=== PATIENT | female | born 1960 | race Caucasian/White ===

== ENCOUNTER 2021-08-03 15:20 | Emergency (ER) | payer OTHER ==
[~2021-08-03 15:20] MED LIST: ANTIVERT 25MG T25 MG PO; PREDNISONE20 MG PO; ROBITUSSIN AC480 ML PO; VIBRAMYCIN100 MG PO
[2021-08-03] MEDS ORDERED: CLINDAMYCIN HC300 MG PO (16:17)
[2021-08-03] MEDS ORDERED: BACTROBAN OINT22 GM EXT (16:17)
== END 2021-08-03 16:31 | disposition home or self-care (01) ==
LOC: ER1 15:20
DX: S51.821A Laceration with foreign body of right forearm, initial encounter (principal); Z23 Encounter for immunization; I10 Essential (primary) hypertension; Z95.1 Presence of aortocoronary bypass graft; Z90.710 Acquired absence of both cervix and uterus; W45.8XXA Other foreign body or object entering through skin, initial encounter
CPT/HCPCS: 90715; 99283

== ENCOUNTER 2022-02-26 10:54 | Emergency (ER) | payer OTHER ==
[~2022-02-26 10:54] MED LIST changes: +BACTROBAN OINT22 GM EXT; +CLINDAMYCIN HC300 MG PO
[2022-02-26 12:33] LABS: HEMOGLOBIN 11.2 gm/dl (12.3-15.3); RED BLOOD COUNT 3.91 M/UL (4.00-5.10); WHITE BLOOD COUNT 11.5 K/UL (4.5-11.0)
== END 2022-02-26 19:00 | disposition home or self-care (01) ==
LOC: ER1 10:54
PROVIDERS: Emergency Medicine
DX: R04.0 Epistaxis (principal); I10 Essential (primary) hypertension; J45.909 Unspecified asthma, uncomplicated; I25.10 Atherosclerotic heart disease of native coronary artery without angina pectoris; Z86.73 Personal history of transient ischemic attack (TIA), and cerebral infarction without residual deficits; Z95.1 Presence of aortocoronary bypass graft
CPT/HCPCS: 70450; 80053; 82550; 82553; 84484; 85025; 85610; 85730; 96374; 96376; 99284; J0360

== ENCOUNTER 2022-05-17 02:43 | Inpatient (IN) | payer OTHER ==
[~2022-05-17] VITALS: Ht 165.1 cm; Wt 82.6 kg
[2022-05-17 03:30] LABS: HEMOGLOBIN 11.8 gm/dl (12.3-15.3); RED BLOOD COUNT 4.2 M/UL (4.00-5.10); WHITE BLOOD COUNT 29.3 K/UL (4.5-11.0)
[2022-05-17] MEDS ORDERED: RANOLAZINE ER1000 MG PO (11:02)
[2022-05-17] MEDS ORDERED: ATORVASTATIN CA40 MG PO (11:03)
[2022-05-17] MEDS ORDERED: HYDRALAZINE HCL50 MG PO (11:03)
[2022-05-17] MEDS ORDERED: CLOPIDOGREL75 MG PO (11:04)
[2022-05-17] MEDS ORDERED: GABAPENTIN100 MG PO (11:04)
[2022-05-17] MEDS ORDERED: LORATADINE10 MG PO (11:05)
[2022-05-17] MEDS ORDERED: COMBIVENT RESPIM4 GM INH (11:05)
[2022-05-17] MEDS ORDERED: ROBAXIN 750 MG750 MG PO (11:05)
[2022-05-17] MEDS ORDERED: PROAIR HFA8.5 GM INH (11:06)
[2022-05-17] MEDS ORDERED: FAMOTIDINE40 MG PO (11:06)
[2022-05-17] MEDS ORDERED: ASPIRIN EC81 MG PO (11:07)
[2022-05-18 07:03] LABS: HEMOGLOBIN 9.2 gm/dl (12.3-15.3); RED BLOOD COUNT 3.26 M/UL (4.00-5.10); WHITE BLOOD COUNT 21.8 K/UL (4.5-11.0)
--- NOTE | 2022-05-18 23:55 | NUR ---
PATIENT COMPLAINING OF ABD PAIN, NOW CHEST PAIN AND HEADACHE. GAVE PATIENT A DOSE OF HER MORPHINE, CONTACTED DR. KITCHEN WHO HAD NO NEW ORDERS AT THIS TIME. WILL CONTINUE TO MONITOR PATIENT. VITALS OBTAINED BY TECH AT 2335 TEMP: 98.8, PULSE: 78, RES: 22, O2: 97%, AND B/P OF 147/52 WITH A MAP OF 78.
[2022-05-19 06:53] LABS: HEMOGLOBIN 9.1 gm/dl (12.3-15.3); RED BLOOD COUNT 3.26 M/UL (4.00-5.10); WHITE BLOOD COUNT 16.2 K/UL (4.5-11.0)
[2022-05-19 06:58] LABS: BUN/CREATININE RATIO 14 (0-10)
[2022-05-19 11:47] LABS: ADENOVIRUS F 40/41 Not Detected (Negative); ASTROVIRUS Not Detected (Negative); CAMPYLOBACTER Not Detected (Negative); CRYPTOSPORIDIUM Not Detected (Negative); E.COLI 0157 Not Detected (Negative); ENTAMOEBA HISTOLYTICA Not Detected (Negative); ENTEROAGGREGATIVE E.COLI (EAEC Not Detected (Negative); ENTEROPATHOGENIC E.COLI (EPEC) Not Detected (Negative); ENTEROTOXIGENIC E.COLI (ETEC) Not Detected (Negative); GIARDIA LAMBLIA Not Detected (Negative); NOROVIRUS GI/GII Not Detected (Negative); PLESIOMONAS SHIGELLOIDES Not Detected (Negative); ROTOVIRUS A Not Detected (Negative); SALMONELLA Not Detected (Negative); SAPOVIRUS Not Detected (Negative); SHIG/ENTEROINVAS.ECOLI (EIEC) Not Detected (Negative); SHIGA-LIK TOX.PRO.E.COLI (STEC Not Detected (Negative); VIBRIO Not Detected (Negative); VIBRIO CHOLERAE Not Detected (Negative); YERSINIA ENTEROCOLITICA Not Detected (Negative)
[2022-05-19 14:14] LABS: CLOSTRIDIUM DIFFICILE TOX A/B Not Detected (Negative)
[2022-05-20 06:02] LABS: HEMOGLOBIN 9.2 gm/dl (12.3-15.3); RED BLOOD COUNT 3.33 M/UL (4.00-5.10); WHITE BLOOD COUNT 15.7 K/UL (4.5-11.0)
[2022-05-20 06:54] LABS: BUN/CREATININE RATIO 15 (0-10)
[2022-05-21 03:39] LABS: HEMOGLOBIN 9.4 gm/dl (12.3-15.3); RED BLOOD COUNT 3.37 M/UL (4.00-5.10); WHITE BLOOD COUNT 14.3 K/UL (4.5-11.0)
--- NOTE | 2022-05-21 04:16 | NUR ---
IV SITE TO THE LEFT AC WAS DISCONTINUED BY MYSELF ON 05/20/22 AT 2357 DUE TO REDNESS AND PREVIOUSLY LEAKING. PATIENT RIGHT ARM RED AT AC AREA AND RIGHT ARM HAND SWOLLEN.
[2022-05-21 04:18] LABS: BUN/CREATININE RATIO 11 (0-10)
--- NOTE | 2022-05-21 08:18 | NUR ---
MILAGROS CR NOTIFED RN DURING SHIFT REPORT PATIENT BLOOD PRESSURE 214/68. 2AM VITALS WERE NOT COMPLETED ON PATIENT, LAST BLOOD PRESSURE NOTED FOR PATIENT WAS AT 2245: 162/49. MD NOTIFIED. ORDERED LABETOL DRIP UNTIL SBP BELOW 160 THEN DISCONTINUE AND START COREQ 25MG BID. PATIENT ALSO COMPLAINED OF LOWER ABDOMEN PAIN OF 10/10, STATED MORPHINE GIVES HER CHEST PAIN. MD GAVE NEW ORDERS FOR DILAUDID 0.2MG Q2HRS/PRN. PATIENT TRANSFERED TO ICU ROOM 2120, REPORT GIVEN TO SELINA.
--- NOTE | 2022-05-21 23:13 | NUR ---
PT BP WAS HIGH AND GAVE PRN HYDRALAZINE AND WHEN I TOLD THE PATIENT I WAS GOING TO BE BACK AND RECHECK HER BP. SHE SAID NO LET HER SLEEP AND DO NOT WAKE HER UP. I EDUCATED ON REASON AND RISK OF NOT RECHECKING BP, PT WAS PERSISTANT TO NOT RECHECK AND LET HER SLEEP
[2022-05-22 06:28] LABS: HEMOGLOBIN 10.2 gm/dl (12.3-15.3); RED BLOOD COUNT 3.63 M/UL (4.00-5.10); WHITE BLOOD COUNT 14.1 K/UL (4.5-11.0)
[2022-05-22 06:56] LABS: BUN/CREATININE RATIO 11 (0-10)
[2022-05-23 06:46] LABS: HEMOGLOBIN 10.5 gm/dl (12.3-15.3); RED BLOOD COUNT 3.79 M/UL (4.00-5.10); WHITE BLOOD COUNT 13.4 K/UL (4.5-11.0)
[2022-05-23 07:10] LABS: BUN/CREATININE RATIO 10 (0-10)
[2022-05-25 07:13] LABS: HEMOGLOBIN 12.2 gm/dl (12.3-15.3); WHITE BLOOD COUNT 15.4 K/UL (4.5-11.0)
[2022-05-25 07:25] LABS: RED BLOOD COUNT 4.41 M/UL (4.00-5.10)
[2022-05-25 07:42] LABS: BUN/CREATININE RATIO 13 (0-10)
[2022-05-25] MEDS ORDERED: AMLODIPINE BESYL5 MG PO (10:20)
[2022-05-25] MEDS ORDERED: AMOX TR-K CLV1 EAC4 PO (10:20)
[2022-05-25] MEDS ORDERED: HYDROCODON-ACE1 EAC2 PO (10:20)
[2022-05-25] MEDS ORDERED: PHENERGAN 25 MG25 M1 PO (10:20)
== END 2022-05-25 13:36 | disposition home or self-care (01) | DRG 872 ==
LOC: ER1 02:43 → MED SURG 4 09:16 → CDU 09:16 → MED SURG 4 15:16 → CCU 05-21 08:08 → MED SURG 4 05-21 18:11
PROVIDERS: Internal Medicine Infectious Disease; Physician Assistant; ADMIT Internal Medicine
DX: A41.9 Sepsis, unspecified organism (principal); N17.9 Acute kidney failure, unspecified; K57.20 Diverticulitis of large intestine with perforation and abscess without bleeding; K56.7 Ileus, unspecified; I25.10 Atherosclerotic heart disease of native coronary artery without angina pectoris; R65.20 Severe sepsis without septic shock; N18.30 Chronic kidney disease, stage 3 unspecified; J45.909 Unspecified asthma, uncomplicated; N28.1 Cyst of kidney, acquired; I16.0 Hypertensive urgency; D64.9 Anemia, unspecified; E87.6 Hypokalemia; Z96.611 Presence of right artificial shoulder joint; Z83.3 Family history of diabetes mellitus; Z86.73 Personal history of transient ischemic attack (TIA), and cerebral infarction without residual deficits; Z95.1 Presence of aortocoronary bypass graft; Z90.710 Acquired absence of both cervix and uterus; Z98.51 Tubal ligation status; Z95.5 Presence of coronary angioplasty implant and graft; Z90.12 Acquired absence of left breast and nipple; Z88.0 Allergy status to penicillin; Z88.5 Allergy status to narcotic agent; Z82.49 Family history of ischemic heart disease and other diseases of the circulatory system; Z79.899 Other long term (current) drug therapy; Z79.82 Long term (current) use of aspirin
CPT/HCPCS: 36415; 71045; 80048; 80053; 81001; 83605; 83690; 83735; 85025; 86140; 87086; 87507; 94760; 96374; 96375; 96376; 99285; J0360; J1170; J1335; J1956; J2185; J2270; J2405; J2550; J7030; Q9967